=== PATIENT | female | born 1970 | race Caucasian/White ===

== ENCOUNTER 2017-05-17 15:39 | Emergency (ER) | payer SELFPAY ==
[2017-05-17] MEDS ORDERED: Acetaminophen 500 MG TAB ONE (16:03)
[2017-05-17] MEDS ORDERED: Oseltamivir 75 MG CAP ONE (16:03)
[2017-05-17] MEDS ORDERED: Ondansetron ODT 4 MG TAB ONE (16:03)
== END 2017-05-17 16:10 | disposition home or self-care (01) ==
LOC: BURERS 15:39
DX: J11.1 Influenza due to unidentified influenza virus with other respiratory manifestations (principal)
CPT/HCPCS: 99283; Q0162

== ENCOUNTER 2020-04-28 14:14 | Outpatient (CLI) | payer OTHER ==
[2020-04-28 14:52] LABS: ALT (SGPT) 25 U/L (8-55); AST (SGOT) 19 U/L (5-34); Albumin 4.5 g/dL (3.5-5.0); Alkaline Phosphatase 102 U/L (40-110); Anion Gap 17 mmol/L (10-20); BUN (Urea Nitrogen) 12 mg/dL (9.8-20.1); Bilirubin, Total 1.5 mg/dL (0.2-1.2); Calc. Creatinine Clearance 0 mL/min (70-130); Calcium 9.7 mg/dL (7.8-10.44); Carbon Dioxide 22 mmol/L (22-29); Cardiac Risk 5.5 (Less than 4.5); Chloride 100 mmol/L (98-107); Cholesterol 237 mg/dl (< 200 Desired); Globulin 3.4 g/dL (2.4-3.5); Glucose 376 mg/dL (70-105); HDL Cholesterol 43 mg/dL (>60 Neg Risk); LDL Cholesterol, Calculated 146 mg/dL; Potassium 4.2 mmol/L (3.5-5.1); Protein, Total 7.9 g/dL (6.0-8.3); Sodium 135 mmol/L (136-145); Triglycerides 239 mg/dL (Less than 150)
[2020-04-28 15:15] LABS: Thyroid Stimulating Hormone 6.2102 uIU/mL (0.35-4.94)
[2020-04-28 15:18] LABS: Hemoglobin 17.1 g/dL (12.0-16.0); Mean Corpuscular HGB CONC 34.7 g/dL (32.0-36.0); Mean Corpuscular Hemoglobin 30.2 pg (27.0-31.0); Mean Corpuscular Volume 86.9 fL (78.0-98.0); Mean Platelet Volume 9.6 fL (7.4-10.4); Platelet Count 208 thou/uL (130-400); RBC Distribution Width 11.5 % (11.5-14.5); Red Blood Cell (RBC) Count 5.65 mill/uL (4.20-5.40); White Blood Cell (WBC) Count 8.4 thou/uL (4.8-10.8)
[2020-04-28 17:26] LABS: Free T4 (Free Thyroxine) 0.83 ng/dL (0.70-1.48)
== END 2020-04-28 14:15 | disposition home or self-care (01) ==
LOC: BURLAB 14:14
PROVIDERS: ATTEND Family Medicine
DX: Z00.00 Encounter for general adult medical examination without abnormal findings (principal); E03.9 Hypothyroidism, unspecified; E78.2 Mixed hyperlipidemia; E11.9 Type 2 diabetes mellitus without complications
CPT/HCPCS: 36415; 80053; 80061; 84439; 84443; 85025

== ENCOUNTER 2022-02-10 09:35 | Outpatient (CLI) | payer OTHER ==
[2022-02-10 11:47] LABS: Creatinine, Urine 140.03 mg/dL (47-110); Microalbumin Urine 12.6 mg/dL (0.5-50.0)
[2022-02-10 12:06] LABS: #Basophils 0.1 thou/uL (0.0-0.2); #Eosinphils 0.1 thou/uL (0.0-0.7); #Lymphocytes 2.5 thou/uL (1.20-3.40); #Monocytes 0.7 thou/uL (0.11-0.59); #Neutrophils 3.9 thou/uL (1.40-6.50); %Basophils 1.1 % (0.0-1.0); %Eosinophils 1.6 % (0.0-10.0); %Lymphocytes 34.4 % (21.0-51.0); %Monocytes 9.8 % (0.0-10.0); %Neutrophils 53.1 % (42.0-75.0); ALT (SGPT) 30 U/L (8-55); AST (SGOT) 23 U/L (5-34); Albumin 4.2 g/dL (3.5-5.0); Alkaline Phosphatase 104 U/L (40-110); Anion Gap 15 mmol/L (10-20); BUN (Urea Nitrogen) 10 mg/dL (9.8-20.1); Bilirubin, Total 1.2 mg/dL (0.2-1.2); Calc. Creatinine Clearance 0 mL/min (70-130); Calcium 9.4 mg/dL (7.8-10.44); Carbon Dioxide 25 mmol/L (22-29); Cardiac Risk 6.2 (Less than 4.5); Chloride 102 mmol/L (98-107); Cholesterol 192 mg/dl (< 200 Desired); Estimated GFR 98; Globulin 3.4 g/dL (2.4-3.5); Glucose 308 mg/dL (70-105); HDL Cholesterol 31 mg/dL (>60 Neg Risk); Hemoglobin 16.9 g/dL (12.0-16.0); LDL Cholesterol, Calculated 109 mg/dL; Mean Corpuscular HGB CONC 34.1 g/dL (32.0-36.0); Mean Corpuscular Hemoglobin 30.4 pg (27.0-31.0); Mean Corpuscular Volume 89.1 fl (78.0-98.0); Mean Platelet Volume 9.6 fL (7.4-10.4); Platelet Count 218 10x3/uL (130-400); Potassium 3.7 mmol/L (3.5-5.1); Protein, Total 7.6 g/dL (6.0-8.3); RBC Distribution Width 11.7 % (11.5-14.5); Red Blood Cell (RBC) Count 5.56 mill/uL (4.20-5.40); Sodium 138 mmol/L (136-145); Thyroid Stimulating Hormone 18.4624 uIU/mL (0.35-4.94); Triglycerides 259 mg/dL (Less than 150); White Blood Cell (WBC) Count 7.2 10x3/uL (4.8-10.8)
[2022-02-10 17:37] LABS: Hemoglobin A1c 12.8 % (4.0-6.0)
[2022-02-10 18:00] LABS: Free T4 (Free Thyroxine) 0.82 ng/dL (0.70-1.48)
[2022-02-10 18:01] LABS: HIV (1/2) Antibody/Antigen Non-Reactive (NonReactive); HIV 1/2 INDEX 0.16 S/CO (<1.00)
== END 2022-02-10 09:36 | disposition home or self-care (01) ==
LOC: BURLAB 09:35
PROVIDERS: ATTEND Family Medicine
DX: Z11.4 Encounter for screening for human immunodeficiency virus [HIV] (principal); E03.9 Hypothyroidism, unspecified; E78.2 Mixed hyperlipidemia; E11.9 Type 2 diabetes mellitus without complications
CPT/HCPCS: 36415; 80053; 80061; 82043; 83036; 84439; 84443; 85025; 87389

== ENCOUNTER 2024-04-09 14:15 | Outpatient (CLI) | payer OTHER ==
[2024-04-09 14:35] LABS: #Basophils 0.1 thou/uL (0.0-0.2); #Eosinophils 0.4 thou/uL (0.0-0.7); #Lymphocytes 1.9 thou/uL (1.20-3.40); #Monocytes 0.5 thou/uL (0.11-0.59); #Neutrophils 4.1 thou/uL (1.40-6.50); %Basophils 1.4 % (0.0-1.0); %Eosinophils 5.2 % (0.0-10.0); %Monocytes 7.4 % (0.0-10.0); Hematocrit 50.4 % (36.0-47.0); Mean Corpuscular HGB CONC 33.8 g/dL (32.0-36.0); Mean Corpuscular Hemoglobin 28.4 pg (27.0-31.0); Mean Corpuscular Volume 84.2 fl (78.0-98.0); Mean Platelet Volume 7.4 fL (7.4-10.4); Platelet Count 210 10x3/uL (130-400); Red Blood Cell (RBC) Count 5.99 mill/uL (4.20-5.40)
[2024-04-09 15:00] LABS: ALT (SGPT) 15 U/L (8-55); AST (SGOT) 14 U/L (5-34); Albumin 3.9 g/dL (3.5-5.0); Alkaline Phosphatase 71 U/L (40-110); Anion Gap 14 mmol/L (10-20); BUN (Urea Nitrogen) 10 mg/dL (9.8-20.1); Bilirubin, Total 1.1 mg/dL (0.2-1.2); Calc. Creatinine Clearance 0 mL/min (70-130); Calcium 9.3 mg/dL (7.8-10.44); Carbon Dioxide 22 mmol/L (22-29); Chloride 104 mmol/L (98-107); Estimated GFR 87; Globulin 3.7 g/dL (2.4-3.5); Glucose 200 mg/dL (70-105); Lipase 48 U/L (8-78); Potassium 3.9 mmol/L (3.5-5.1); Protein, Total 7.6 g/dL (6.0-8.3); Sodium 136 mmol/L (136-145)
[2024-04-09 15:38] LABS: Thyroid Stimulating Hormone 16.1147 uIU/mL (0.35-4.94)
[2024-04-09 22:29] LABS: Amylase 92 U/L (25-125)
[2024-04-09 22:50] LABS: Free T4 (Free Thyroxine) 0.8 ng/dL (0.70-1.48)
== END 2024-04-09 14:16 | disposition home or self-care (01) ==
LOC: BURRAD 14:15
PROVIDERS: ATTEND Nurse Practitioner Family
DX: E03.9 Hypothyroidism, unspecified (principal); R19.7 Diarrhea, unspecified
CPT/HCPCS: 36415; 80053; 82150; 83690; 84439; 84443; 85025